=== PATIENT | male | born 1990 | race Caucasian/White ===

== ENCOUNTER → 2023-12-13 | Emergency (ER) | payer SELFPAY ==
[~2023-12-13] MED LIST: CYCLOBENZAPRINE 10 MG TAB ONE; HYDROCODONE/APAP 5/325 MG TAB ONE; KETOROLAC 30 MG/ML INJ ONE
--- OUTSIDE RECORDS SUMMARY | 2023-12-13 10:03 | XMS REPORT | Continuity of Care Document ---
Author Name Unknown Address [address] [place] [address] [facility] Address [address] [place] [address] Care Team Providers Care Photo Specialist Name Role Phone Pcp, Patient Does Not Have A Primary Care Physic eusebia Alex PARK Attending Clinician Unavailable Francesco PACAlex Attending Clinician [phone] TAMMI ELDER Attending Clinician Unavailable Jerrod BINDING BENCH WORKERTammi Attending Clinician [phone] Doctor Unassigned, [place] Attending Clinician U navailable TAMMI ELDER Admitting Clinician Unavailable Alex PARK Admitting Clinician Unavailable Problems Condition Name Condition Details Condition Category Status Onset Date Resolution Date Last Treatment Date Treating Clinician Comments Source No known active problems No known active problems Disease [facility] Allergies, Adverse Reactions, Alerts Allergy Name Allergy Type Status Severity Reaction(s) Onset Date Inactive Date Treating Clinician Comments Source NO KNOWN ALLERGIE S Drug Class Active [facility] Social History Social Habit Start Date Stop Date Quantity Comments Source Gender identity [facility] Sexual orientation U [facility] Exposure to SARS-CoV-2 (event) 2022-05-30 00:00:00 2022-06-09 14:19:00 Not sure [facility] Sex Assigned At 1990 00:00:00 1990 00:00:00 [facility] Smoking Status Start Date Stop Date Source Tobacco smoking consumption unknown [facility] Medications Ordered Medication Name Filled Medication Name Start Date Stop Date Current Medication? Ordering Clinician Indication Dosage Frequency Signature (SIG) Comments Components Source methylpredn isolone sod succ (SOLU-MEDRO L) injection 125 mg 08-09 16:30: 00 08-09 15:39 :00 No 125mg 125 mg, Intramuscu lar, ONCE, 1 dose, On My 08/09/23 at 1130, RICKY [facility] methocarbam oL (ROBAXIN) tablet 500 mg 08-09 16:30: 00 08-09 15:38 :00 No 500mg 500 mg, Oral, ONCE, 1 dose, On My 08/09/23 at 1130, Routine [facility] methocarbam oL 500 mg tablet 08-09 00:00: 00 Yes [id number] 500mg Take 1 tablet by mouth 4 (four) times daily. [facility] predniSONE 20 mg tablet 08-09 00:00: 00 Yes [id number] 1 PO BID x 4 days [facility] cephALEXin (KEFLEX) 500 mg capsule 05-01 00:00: 00 05-09 04:59 :00 No [id number] 500mg Take 1 capsule by mouth 4 (four) times daily for 7 days. [facility] methocarbam oL (ROBAXIN) tablet 500 mg 06-09 21:00: 00 06-09 20:39 :00 No 500mg 500 mg, Oral, ONCE, 1 dose, On Sun06/09/22 at 1600, Routine [facility] HYDROcodone -acetaminop hen (NORCO) 10-325 mg tablet 1 tablet 06-09 21:00: 00 06-09 20:39 :00 No 1{tbl} 1 tablet, Oral, ONCE, 1 dose, On Sun06/09/22 at 1600, Routine [facility] acetaminoph en-codeine 300-30 mg tablet 06-09 00:00: 00 Yes [id number] 1{tbl} Take 1 tablet by mouth every 4 (four) hours as needed for Pain (scale 4-6). Indication s: acute pain [facility] methocarbam oL 500 mg tablet 2021-0 7-15 00:00: 00 Yes [id number] 500mg Take 1 tablet by mouth 4 (four) times daily. [facility] ibuprofen 600 mg tablet 2021-0 7-15 00:00: 00 Yes [id number] 600mg Take 1 tablet by mouth every 6 (six) hours as needed for Pain (scale 4-6). [facility]-codeine 300-30 mg tablet 0 7-15 00:00: 00 Yes [id number] 1{tbl} Take 1 tablet by mouth every 4 (four) hours as needed for Pain (scale 4-6). Indication s: acute pain [facility] methocarbam oL 500 mg tablet 0 7-15 00:00: 00 Yes [id number] 500mg Take 1 tablet by mouth 4 (four) times daily. [facility] ibuprofen 600 mg tablet 2021-0 -15 00:00: 00 Yes [id number] 600mg Take 1 tablet by mouth every 6 (six) hours as needed for Pain (scale 4-6). [facility] acetaminoph en-codeine 300-30 mg tablet 2021-0 7-15 00:00: 00 Yes [id number] 1{tbl} Take 1 tablet by mouth every 4 (four) hours as needed for Pain (scale 4-6). Indication s: acute pain [facility] methocarbam oL 500 mg tablet 2021-0 -15 00:00: 00 Yes [id number] 500mg Take 1 tablet by mouth 4 (four) times daily. [facility] ibuprofen 600 mg tablet 2021-0 7-15 00:00: 00 Yes [id number] 600mg Take 1 tablet by mouth every 6 (six) hours as needed for Pain (scale 4-6). [facility] acetaminoph en-codeine 300-30 mg tablet 2021-0 7-15 00:00: 00 Yes [id number] 1{tbl} Take 1 tablet by mouth every 4 (four) hours as needed for Pain (scale 4-6). Indication s: acute pain [facility] methocarbam oL 500 mg tablet 06-09 00:00: 00 Yes [id number] 500mg Take 1 tablet by mouth 4 (four) times daily. [facility] ibuprofen 600 mg tablet 06-09 00:00: 00 Yes [id number] 600mg Take 1 tablet by mouth every 6 (six) hours as needed for Pain (scale 4-6). [facility] Vital Signs Vital Name Observation Time Observation Value Comments Nina apz Systolic blood pressure 2023-08-09 14:45:00 148 mm[Hg] [facility] Diastolic blood pressure 2023-08-09 14:45:00 84 mm[Hg] [facility] Heart rate 2023-08-09 14:45:00 95 /min [facility] Body temperature 2023-08-09 14:45:00 36.83 Herminia [facility] Respiratory rate 2023-08-09 14:45:00 18 /min [facility] Body height 2023-08-09 14:45:00 175.3 cm [facility] Body weight 2023-08-09 14:45:00 65.772 kg [facility] BMI 2023-08-09 14:45:00 21.41 kg/m2 [facility] Oxygen saturation in Arterial blood by Pulse oximetry 2023-08-09 14:45:00 99 /min [facility] Systolic blood pressure 2023-05-01 13:29:00 122 mm[Hg] [facility] Diastolic blood pressure 2023-05-01 13:29:00 83 mm[Hg] [facility] Heart rate 2023-05-01 13:29:00 90 /min [facility] Body temperature 2023-05-01 13:29:00 37.22 Herminia [facility] Respiratory rate 2023-05-01 13:29:00 18 /min [facility] Body weight 2023-05-01 13:29:00 68.04 kg [facility] BMI 2023-05-01 13:29:00 22.15 kg/m2 [facility] Oxygen saturation in Arterial blood by Pulse oximetry 2023-05-01 13:29:00 99 /min [facility] Systolic blood pressure 2022-06-09 19:20:00 119 mm[Hg] [facility] Diastolic blood pressure 2022-06-09 19:20:00 87 mm[Hg] [facility] Heart rate 2022-06-09 19:20:00 92 /min [facility] Body temperature 2022-06-09 19:20:00 37.56 Herminia [facility] Respiratory rate 2022-06-09 19:20:00 18 /min [facility] Body height 2022-06-09 19:20:00 175.3 cm [facility] Body weight 2022-06-09 19:20:00 68.04 kg [facility] BMI 2022-06-09 19:20:00 22.15 kg/m2 [facility] Oxygen saturation in Arterial blood by Pulse oximetry 2022-06-09 19:20:00 100 /min [facility] Procedures Procedure Date / Time Performed Performing Clinician Source CONSENT/REFUSAL FOR DIAGNOSIS AND TREATMENT 2023-08-09 14:35:27 Doctor Unassigned, [place] [facility] XR WRIST <3 VW LEFT 2023-05-01 13:53:24 Tammi Elder [facility] ASSIGNMENT OF BENEFITS 2023-05-01 13:42:25 Docto r Unassigned, [place] [facility] NOTICE OF PRIVACY PRACTICES 2023-05-01 13:25:55 Doctor Unassigned, [place] [facility] CONSENT/REFUSAL FOR DIAGNOSIS AND TREATMENT 2023-05-01 13:25:28 Doctor Unassigned, [place] [facility] MEDICATION CORRESPONDENCE 2022-11-27 06:01:00 Do ctor Unassigned, [place] [facility] CT THORACIC SPINE WO CONTRAST 2022-06-09 19:59:13 Alex Park [facility] Encounters Start Date/Time End Date/Time Encounter Type Admission Type Attending Clinicians Care Facility Care Department Encounter ID Source 2023-08-09 09:46:00 2023-08-09 11:00:00 Emergency X Alex PARK [facility] ERT [id number] [facility] 2023-08-09 09:46:00 2023-08-09 11:00:00 Emergency Alex Park [facility] [id number] [id number] [id number] [facility] 2023-05-01 08:31:00 2023-05-01 10:35:00 Emergency X TAMMI ELDER [facility] ERT [id number] [facility] 2023-05-01 08:31:00 2023-05-01 10:35:[address] Elder [facility] [id number] 4.2.7.2.686 [id number] [facility] 2022-11-27 00:00:00 2022-11-27 00:00:00 Orders Only Doctor Unassigned, [place] [facility] [id number] 350.1.13.10 4.2.7.2.686 [id number] [facility] 2022-06-09 14:21:00 2022-06-09 16:39:00 Emergency X Alex PARK [facility] ERT [id number] [facility] 2022-06-09 14:21:00 2022-06-09 16:39:00 Emergency Alex Park Kika [facility] [id number] [id number] 4.2.7.2.686 [id number] [facility] Notes Date/Time Note Provider Source 2023-08-09 10:50:00 [id number] [id number]:50:00F ormatting of this note might be different from the original.Pt discharged with diagnosis of sciatica of left side and muscle strain. Printed and verbal instructions reviewed with and given to patient. Prescriptions given x 2. Pt verbalized understanding of teaching, medications, and recommended follow-up. Denies questions or concerns at this time. Pt ambulatory at discharge. Appears in no apparent distress. No ataxia noted. 95816-2Gakjovqan department [id number]:37:59[facility] [id number] [id number] Available for patient [id number] annel Victor RN[address] OiubUhfbmazgtUiqblwggvJPNY91 [id number] [id number]:37:591.2.840 .[id number]|1.2.840.11 [id number] Jeanine Victor RN [facility] 2023-08-09 09:44:22 [id number] SDgNCwtZ bIWlgZ8kGcqEZd5pIWxjJ4+1x31h iPy17lxa6929-34-96A69:44:22F ormatting of this note might be different from the original.Patient complaining of left hip pain, left buttocks pain, and left inner groin pain. Works and does lots of heavy lifting. Injury happened 2 days ago. 14347-5Rnywardel department Triage [id number]:45:05[facility] Triage [id number] [id number] Available for patient [id number] department [id number] D Wierzbicki RN[address] UmdwTpjoaozihQkuccmtnqRQJI31 [id number] [id number]:45:051.2.840 .[id number]|1.2.840.11 [id number] Cheo Quispe RN [facility]"
--- NOTE | 2023-12-13 10:46 | RAD REPORT ---
EXAM DESCRIPTION: CT - C Spine Wo Con - 12/13/2023 10:30 am CLINICAL HISTORY: Pain COMPARISON: None. TECHNIQUE: Axial noncontrast thin cut CT images of the cervical spine were obtained with sagittal an d coronal reconstruction images generated and reviewed. All CT scans are performed using dose optimization technique as appropriate and may include automated exposure control or mA/KV adjustment according to patient size. FINDINGS: Cervical body height and alignment are normal. No disk space narrowing. No significant degenerative changes. No fracture or acute bony abnormality. No paraspinal mass or hematoma. IMPRESSION: Negative CT cervical spine examination.
--- NOTE | 2023-12-13 11:14 | ER ---
Nurse's Notes [facility] Name: Josh Sherwood Age: 33 yrs Sex: Male : 1990 Arrival Date: 12/13/2023 Time: 10:01 Bed 14 Private MD: Diagnosis: Cervicalgia Presentation: 12/13 10:10 Chief complaint: Patient states: Neck and upper back pain since moving heavy equipment ll1 yesterday down some steps. No trauma or falls. Coronavirus screen: Vaccine status: Patient reports being unvaccinated. Client denies travel out of the [place] in the last 14 days. At this time, the client does not indicate any symptoms associated with coronavirus-19. Ebola Screen: Patient denies travel to an Ebola-affected area in the 21 days before illness onset. Initial Sepsis Screen: Does the patient meet any 2 criteria? No. Patient's initial sepsis screen is negative. Does the patient have a suspected source of infection? Yes: Bone or joint infection. Risk Assessment: Do you want to hurt yourself or someone else? Patient reports no desire to harm self or others. Onset of symptoms was December 12, 2023. 10:10 Method Of Arrival: Ambulatory ll1 10:10 Acuity: SEBASTIÁN 4 ll1 Triage Assessment: 10:11 General: Appears uncomfortable, Behavior is calm, cooperative, appropriate for age. ll1 Pain: Complains of pain in neck Pain currently is 8 out of 10 on a pain scale. Quality of pain is described as aching, Pain began 1 day ago. Aggravated by increased activity. Musculoskeletal: Circulation, motion, and sensation intact. Capillary refill < 3 seconds, Reports pain in neck and upper back. Historical: - Allergies: 10:10 NSAIDS; ll1 - PMHx: 10:10 None; ll1 - PSHx: 10:10 None; ll1 - Immunization history:: Adult Immunizations up to date. - Social history:: Smoking status: Patient reports the use of cigarette tobacco products, smokes one-half pack cigarettes per day. Screenin:14 [facility] ED Fall Risk Assessment (Adult) Score/Fall Risk Level 0 - 2 = Low Risk ll1 Oriented to surroundings, Maintained a safe environment, Educated pt \T\ family on fall prevention, incl call for assistance when getting out of bed, Hourly rounding (assess needs \T\ fall precautionary measures) done. Abuse screen: Denies threats or abuse. Nutritional screening: No deficits noted. Tuberculosis screening: No symptoms or risk factors identified. Assessment: 11:05 Reassessment: No changes from previously documented assessment. Patient and/or family ll1 updated on plan of care and expected duration. Pain level reassessed. Patient is alert, oriented x 3, equal unlabored respirations, skin warm/dry/pink. Vital Signs: 10:10 BP 115 / 77; Pulse 83; Resp 17; Temp 98.1; Pulse Ox 99% ; Weight 65.77 kg; Height 5 ft. ll1 9 in. ; Pain 8/10; 10:10 Body Mass Index 21.41 (65.77 kg, 175.26 cm) ll1 10:10 Pain Scale: Adult ll1 ED Course: 10:03 Patient arrived in ED. mr 10:05 Arm band placed on Patient placed in an exam room, on a stretcher. ll1 10:06 Isabela Bey is Attending Physician. ci 10:10 Dyan Donato, DAMARIS is Primary Nurse. ll1 10:12 Triage completed. ll1 10:15 Patient has correct armband on for positive identification. Bed in low position. Call ll1 light in reach. Provided Education on: ER procedures and process. Sitter at bedside. 10:28 CT C Spine In Process Unspecified. EDMS Administered Medications: 11:00 Drug: Ketorolac IM 30 mg IM once Route: IM; Site: right gluteus; ll1 11:05 Drug: Cyclobenzaprine PO 10 mg PO once Route: PO; ll1 11:22 Not Given (Physician Discretion): hydrocodone-acetaminophen5 mg-325 mg 2 tabs PO once ci 11:46 Drug: HYDROcodone-acetaminophen PO 5 mg-325 mg 1 tabs PO once Route: PO; iw Medication: 10:15 VIS not applicable for this client. ll1 Outcome: 11:14 Discharge ordered by . ci 11:47 Patient left the ED. iw Signatures: Dispatcher [employer] EDMS Kenya Kay, Reg Reg Adelia Stewart RN RN iw Dyan Donato RN RN ll1 Isabela Bey ci
--- NOTE | 2023-12-13 11:14 | EDPHYS ---
Physician Documentation [facility] Name: Josh Sherwood Age: 33 yrs Sex: Male : 1990 Arrival Date: 12/13/2023 Time: 10:01 Bed 14 Private MD: ED Physician Isabela Bey HPI: 12/13 11:00 This 33 yrs old Male presents to ER via Ambulatory with complaints of Neck pain, Back ci Pain. 11:00 Patient is a 33-year-old male with no PMH who presents to the ED with chief complaint ci of midline neck pain that began about 3 days ago after he lifted a refrigerator up the stairs to an apartment. Endorses sharp pain, that radiates into his upper back, radiated 9/10. Patient has taken naproxen but developed mouth sores. He denies any paresthesias, denies numbness, denies extremity weakness. Denies any trauma, IVDU, fever, chills, immunosuppression.. Historical: - Allergies: 10:10 NSAIDS; ll1 - PMHx: 10:10 None; ll1 - PSHx: 10:10 None; ll1 - Immunization history:: Adult Immunizations up to date. - Social history:: Smoking status: Patient reports the use of cigarette tobacco products, smokes one-half pack cigarettes per day. ROS: 11:00 Constitutional: Negative for body aches, chills, fatigue, fever, poor PO intake, ci 11:00 Neck: Positive for pain with movement, pain at rest, bony tenderness, Negative for injury or acute deformity, mass, swelling, 11:00 Cardiovascular: Negative for chest pain, edema, orthopnea, palpitations, 11:00 Respiratory: Negative for cough, pleurisy, shortness of breath, 11:00 Abdomen/GI: Negative for abdominal pain, nausea, vomiting, and diarrhea, 11:00 Back: Positive for radiated pain, Negative for injury or acute deformity, decreased range of motion, pain at rest, pain with movement, 11:00 Skin: Negative for diaphoresis, discoloration, erythema, rash, 11:00 Neuro: Negative for altered mental status, headache, numbness, tingling, weakness, Exam: 11:00 Constitutional: This is a well developed, well nourished patient who is awake, alert, ci and in no acute distress. Head/Face: Normocephalic, atraumatic. Eyes: Pupils equal round and reactive to light, extra-ocular motions intact. Lids and lashes normal. Conjunctiva and sclera are non-icteric and not injected. Cornea within normal limits. Periorbital areas with no swelling, redness, or edema. ENT: Nares patent. No nasal discharge, no septal abnormalities noted. Tympanic membranes are normal and external auditory canals are clear. Oropharynx with no redness, swelling, or masses, exudates, or evidence of obstruction, uvula midline. Mucous membranes moist. Neck: Trachea midline, no thyromegaly or masses palpated, and no cervical lymphadenopathy. Supple, full range of motion without nuchal rigidity. Positive vertebral point tenderness. No Meningismus. Chest/axilla: Normal chest wall appearance and motion. Nontender with no deformity. No lesions are appreciated. Cardiovascular: Regular rate and rhythm with a normal S1 and S2. No gallops, murmurs, or rubs. Normal PMI, no JVD. No pulse deficits. Respiratory: Lungs have equal breath sounds bilaterally, clear to auscultation and percussion. No rales, rhonchi or wheezes noted. No increased work of breathing, no retractions or nasal flaring. Abdomen/GI: Soft, non-tender, with normal bowel sounds. No distension or tympany. No guarding or rebound. No evidence of tenderness throughout. Back: No spinal tenderness. No costovertebral tenderness. Full range of motion. Skin: Warm, dry with normal turgor. Normal color with no rashes, no lesions, and no evidence of cellulitis. MS/ Extremity: Pulses equal, no cyanosis. Neurovascular intact. Full, normal range of motion. Neuro: Awake and alert, GCS 15, oriented to person, place, time, and situation. Cranial nerves II-XII grossly intact. Motor strength 5/5 in all extremities. Sensory grossly intact. Cerebellar exam normal. Normal gait. Psych: Awake, alert, with orientation to person, place and time. Behavior, mood, and affect are within normal limits. Vital Signs: 10:10 BP 115 / 77; Pulse 83; Resp 17; Temp 98.1; Pulse Ox 99% ; Weight 65.77 kg; Height 5 ft. ll1 9 in. ; Pain 8/10; 10:10 Body Mass Index 21.41 (65.77 kg, 175.26 cm) ll1 10:10 Pain Scale: Adult ll1 MDM: 10:07 Patient medically screened. ci 11:00 Differential diagnosis: arthritis, Fracture Joint Injury Ligament Injury Osteoarthritis ci spinal injury, sprain. Data reviewed: vital signs, nurses notes, radiologic studies, CT scan. 11:00 ED course: Presents with neck pain. He is nontoxic-appearing, vital signs stable. ci Patient does have point tenderness to C6, imaging was obtained which showed no acute traumatic findings. He has no meningeal signs. He has no neurodeficits, no paresthesias, upper extremity weakness. Patient was given pain meds with some improvement. He is stable for discharge with close outpatient follow-up with PCP and neurosurgery.. 12/13 10:19 Order name: CT C Spine; Complete Time: 11:10 ci 12/13 11:17 Interpretation: No acute disease: Per Radiologist's finding(s): IMPRESSION: Negative ci CT cervical spine examination. Administered Medications: 11:00 Drug: Ketorolac IM 30 mg IM once Route: IM; Site: right gluteus; ll1 11:05 Drug: Cyclobenzaprine PO 10 mg PO once Route: PO; ll1 11:22 Not Given (Physician Discretion): hydrocodone-acetaminophen5 mg-325 mg 2 tabs PO once ci 11:46 Drug: HYDROcodone-acetaminophen PO 5 mg-325 mg 1 tabs PO once Route: PO; iw Disposition Summary: 12/13/23 11:14 Discharge Ordered Notes: Location: Home ci Condition: Stable ci Diagnosis - Cervicalgia ci Followup: ci - With: Private Physician - When: 1 - 2 days - Reason: Recheck today's complaints, Re-evaluation by your physician Discharge Instructions: - Discharge Summary Sheet iw - Musculoskeletal Pain ci - Cervical Sprain, [id number] ci - Neck Exercises ci Forms: - Work release form iw - Medication Reconciliation Form ci - Thank You Letter ci - Antibiotic Education ci - Prescription Opioid Use ci - Patient Portal Instructions ci - Leadership Thank You Letter ci Prescriptions: - acetaminophen-codeine 300-15 mg Oral tablet - take 1 tablet ORAL route every 6 hours as needed for pain; 12 tablet; Refills: ci 0, Product Selection Permitted - Cyclobenzaprine 5 mg Oral Tablet - take 1 tablet ORAL route 3 times per day As needed; 15 tablet; Refills: 0, ci Product Selection Permitted Signatures: Dispatcher [employer] Adelia Theodore RN RN Dyan Monge RN RN ll1 Isabela Bey
[2023-12-13 12:42] VITALS: BP 115/77; TEMP 98.1; O2SAT 99
== END ==
LOC: ER 10:01
DX: M54.2 Cervicalgia (principal); F17.210 Nicotine dependence, cigarettes, uncomplicated
CPT/HCPCS: 72125; 96372; 99284